=== PATIENT | female | born 1935 | race Caucasian/White ===

== ENCOUNTER 2016-11-28 15:29 | Inpatient (IN) | payer OTHER, MEDICAID ==
[~2016-11-28] VITALS: Ht 149.9 cm; Wt 39.9 kg
[2016-11-28 15:40] VITALS: BP 101/40; PULSE 63; RESP 18; TEMP 97.7; O2SAT 91
[2016-11-28 16:33] LABS: ANION GAP 8 (5-15); CALCIUM 8.9 mg/dL (8.4-11.0); CHLORIDE 104 mmol/L (98-107); CREATININE 1.21 mg/dL (0.55-1.30); GLUCOSE 370 mg/dL (70-99); SODIUM SERUM 135 mmol/L (136-145); UREA NITROGEN, BLOOD 30 mg/dL (8-21)
[2016-11-28 16:34] LABS: INR 1.2 (0.8-1.2); PROTHROMBIN TIME 13.2 SECS (9.5-12.5)
[2016-11-28 16:38] LABS: ALANINE AMINOTRANSFERASE 17 U/L (12-78); ALBUMIN 1.7 g/dL (3.4-4.8); ASPARTATE AMINOTRANSFERASE 31 U/L (10-37); TOTAL BILIRUBIN 0.6 mg/dL (0.0-1.0); TOTAL PROTEIN, SERUM 6.2 g/dL (6.4-8.3)
[2016-11-28 16:41] LABS: BASOPHILS # (AUTO) 0.1 K/uL (0.0-0.2); BASOPHILS % (AUTO) 0.9 % (0.0-2.0); EOSINOPHILS % (AUTO) 0.2 % (0.0-4.0); HEMATOCRIT 36.6 % (36-48); HEMOGLOBIN 11.9 g/dL (12.0-16.0); LYMPHOCYTES # (AUTO) 0.2 K/uL (1.0-5.5); LYMPHOCYTES % (AUTO) 1.8 % (20.5-51.5); MEAN CORPUSCULAR HEMOGLOBIN 38 pg (27-31); MEAN CORPUSCULAR HGB CONC 33 % (32-36); MEAN CORPUSCULAR VOLUME 116 fL (79.0-98.0); MONOCYTES # (AUTO) 0.2 K/uL (0.0-1.0); MONOCYTES % (AUTO) 1.6 % (1.7-9.3); NEUTROPHILS # (AUTO) 9.2 K/uL (1.8-7.7); NEUTROPHILS % (AUTO) 95.5 % (40.0-70.0); PLATELET COUNT (AUTO) 212 K/uL (130-430); RED BLOOD CELL COUNT(AUTO) 3.15 MIL/uL (4.2-6.2); WHITE BLOOD COUNT (AUTO) 9.7 K/uL (4.8-10.8)
[2016-11-28 17:02] LABS: BILIRUBIN,URINE 1+ (NEGATIVE); BLOOD, URINE NEGATIVE (NEGATIVE); CLARITY/URINE CLEAR (CLEAR); COLOR,URINE YELLOW (YELLOW); GLUCOSE,URINE 2+ (NEGATIVE); KETONES,URINE NEGATIVE (NEGATIVE); LEUKOCYTE ESTERASE ,URINE NEGATIVE (NEGATIVE); NITRITE, URINE NEGATIVE (NEGATIVE); PROTEIN URINE 1+ (NEGATIVE)
[2016-11-28 17:11] LABS: BARBITURATE, URINE POSITIVE (NEG <=200)
[2016-11-28 17:12] LABS: BENZODIAZEPINE, URINE POSITIVE (NEG <=150); CANNABINOID, URINE POSITIVE (NEG <=50); COCAINE, URINE NEGATIVE (NEG <=150); METHAMPHETAMINES SCREEN,URINE NEGATIVE (NEG <=500); OPIATE, URINE POSITIVE (NEG <=100); PHENCYCLIDINE SCREEN,URINE NEGATIVE (NEG <=25); UR TRICYCLIC ANTIDEPRESSANTS POSITIVE (NEG <=300); URINE AMPHETAMINE NEGATIVE (NEG <=500); URINE METHADONE NEGATIVE (NEG <=200); URINE OXYCODONE SCREEN NEGATIVE (NEG <=100); URINE PROPOXYPHENE SCREEN NEGATIVE (NEG <=300)
[2016-11-28] MEDS ORDERED: cefTRIAXone 1 GM IVPB PREMIX 50 ML IV ONE (17:15)
[2016-11-28] MEDS ORDERED: NACL 0.9% 1,500 ML IV ONE (17:15)
[2016-11-28 17:19] LABS: BACTERIA,URINE RARE /HPF (None Seen); RBC,URINE 0-3 /HPF (0-3); WBC,URINE 0-3 /HPF (0-3)
[2016-11-28 17:27] LABS: RED CELL DISTRIBUTION WIDTH 23.9 % (9.0-15.0)
[2016-11-28] MEDS ORDERED: ENAL10TA PO (18:54)
[2016-11-28] MEDS ORDERED: CAPE500T15 PO (18:54)
[2016-11-28] MEDS ORDERED: BUTA1TAB52 PO (18:54)
[2016-11-28] MEDS ORDERED: ATOR10TA68 PO (18:54)
[2016-11-28] MEDS ORDERED: PROC-14 PO (18:54)
[2016-11-28] MEDS ORDERED: ONDA4TAB5 PO (18:54)
[2016-11-28 20:20] VITALS: BP 106/50; PULSE 74; RESP 22; TEMP 98.4; O2SAT 92
[2016-11-28] MEDS ORDERED: PROCHLORPERAZINE MALEATE 10 MG TABLET PO PRN (21:00)
[2016-11-28] MEDS ORDERED: ACETAMINOPHEN PO SCH (21:00)
[2016-11-28] MEDS ORDERED: BUTALBITAL PO SCH (21:00)
[2016-11-28] MEDS ORDERED: ONDANSETRON 4 MG ODT TAB PO SCH (21:00)
[2016-11-28] MEDS ORDERED: [UNRECOGNIZED DRUG - OTHER] PO SCH (21:00)
[2016-11-28] MEDS ORDERED: ALBUTEROL SULFATE 0.083% 2.5 MG/3 ML VIAL.NEB INH PRN (21:00)
[2016-11-28] MEDS: NACL 0.9% 1,000 ML IV SCH (21:34)
[2016-11-28] MEDS: ACETAMINOPHEN 325 MG TABLET PO PRN (22:49)
[2016-11-28 23:48] VITALS: BP 106/50; PULSE 71
[2016-11-29] VITALS (7 sets, daily range): BP systolic 97–142; BP diastolic 52–67; PULSE 64–112; RESP 18–20; TEMP 97.2–98.3; O2SAT 92–97
[2016-11-29] MEDS: NITROGLYCERIN 1 INCH (GM) OINT. TP SCH ×3 (03:31→22:08)
[2016-11-29] MEDS: ACETAMINOPHEN 325 MG TABLET PO PRN (05:33)
[2016-11-29] MEDS: INSULIN REGULAR, HUMAN 100 UNITS/ML, 10 ML VIAL (novoLIN R) SUBCUT PRN (06:16)
[2016-11-29 07:56] LABS: ANION GAP 12 (5-15); CALCIUM 8.3 mg/dL (8.4-11.0); CHLORIDE 107 mmol/L (98-107); CREATININE 0.83 mg/dL (0.55-1.30); GLUCOSE 181 mg/dL (70-99); POTASSIUM 4.1 mmol/L (3.5-5.1); SODIUM SERUM 140 mmol/L (136-145); UREA NITROGEN, BLOOD 24 mg/dL (8-21)
[2016-11-29 07:57] LABS: BASOPHILS # (AUTO) 0.1 K/uL (0.0-0.2); BASOPHILS % (AUTO) 1.5 % (0.0-2.0); EOSINOPHILS % (AUTO) 0.3 % (0.0-4.0); HEMATOCRIT 37.1 % (36-48); HEMOGLOBIN 12.4 g/dL (12.0-16.0); LYMPHOCYTES # (AUTO) 0.2 K/uL (1.0-5.5); LYMPHOCYTES % (AUTO) 2.4 % (20.5-51.5); MEAN CORPUSCULAR HEMOGLOBIN 39 pg (27-31); MEAN CORPUSCULAR HGB CONC 33 % (32-36); MEAN CORPUSCULAR VOLUME 116 fL (79.0-98.0); MONOCYTES # (AUTO) 0.1 K/uL (0.0-1.0); MONOCYTES % (AUTO) 1.9 % (1.7-9.3); NEUTROPHILS # (AUTO) 7.2 K/uL (1.8-7.7); NEUTROPHILS % (AUTO) 93.9 % (40.0-70.0); PLATELET COUNT (AUTO) 211 K/uL (130-430); RED BLOOD CELL COUNT(AUTO) 3.19 MIL/uL (4.2-6.2); RED CELL DISTRIBUTION WIDTH 23.1 % (9.0-15.0); WHITE BLOOD COUNT (AUTO) 7.7 K/uL (4.8-10.8)
[2016-11-29 08:01] LABS: CREATINE KINASE, TOTAL 82 U/L (26-192)
[2016-11-29 08:41] LABS: CHOLESTEROL 76 mg/dL (<200); HDL CHOLESTEROL 27 mg/dL (>55); LDL CHOLESTEROL 30 mg/dL (<100); TRIGLYCERIDES 90 mg/dL (30-150)
[2016-11-29] MEDS ORDERED: HYDROcodone/ACETAMIN 5-325 MG TAB (NORCO/ VICODIN) PO PRN (08:45)
[2016-11-29] MEDS ORDERED: ASPIRIN 81 MG TAB.CHEW PO SCH (09:00)
[2016-11-29] MEDS ORDERED: CAPECITABINE 1000 MG PO SCH (09:00)
[2016-11-29] MEDS ORDERED: ENALAPRIL MALEATE 10 MG TABLET (VASOTEC) PO SCH (09:00)
[2016-11-29] MEDS: ATORVASTATIN 10 MG TABLET PO SCH (09:24)
[2016-11-29] MEDS: ENALAPRIL MALEATE 5 MG TABLET (VASOTEC) PO SCH (09:26)
[2016-11-29] MEDS: LEVOFLOXACIN 500 MG/D5W 100 ML IV SCH (09:28)
[2016-11-29] MEDS: CAPECITABINE 500 MG PO SCH ×3 (09:29→17:13)
[2016-11-29] MEDS ORDERED: ONDANSETRON HCL 4 MG/2 ML VIAL IVP PRN (09:30)
[2016-11-29] MEDS: NACL 0.9% 1,000 ML IV SCH (11:58)
[2016-11-29] MEDS ORDERED: HYDROcodone/ACETAMIN 5-325 MG TAB (NORCO/ VICODIN) PO ONE (12:30)
[2016-11-29] MEDS: ALBUTEROL SULFATE 0.083% 2.5 MG/3 ML VIAL.NEB INH SCH ×2 (14:00→19:30)
[2016-11-29] MEDS ORDERED: HYDROcodone/ACETAMIN 10-325 MG TAB PO PRN (17:30)
[2016-11-29] MEDS ORDERED: MAG-AL HYDROX/SIMETH 30 ML UDC PO PRN (17:30)
[2016-11-29] MEDS ORDERED: PANTOPRAZOLE SODIUM 40 MG/VIAL (PROTONIX) IVP ONE (17:45)
[2016-11-29] MEDS ORDERED: IOHEXOL 0 ML IV ONE (17:55)
[2016-11-29] MEDS: ACETAMINOPHEN/CODEINE 300 MG-30 MG TABLET PO PRN (18:03)
[2016-11-29] MEDS ORDERED: LORazepam 1 MG TABLET PO PRN (22:15)
[2016-11-29] MEDS ORDERED: TEMAZEPAM 15 MG CAPSULE PO PRN (22:15)
[2016-11-30] VITALS (19 sets, daily range): BP systolic 84–124; BP diastolic 42–89; PULSE 101–125; RESP 14–21; TEMP 96.7–98.2; O2SAT 90–100; Ht 149.9 cm; Wt 39.9 kg
[2016-11-30 00:04] LABS: INR 1.4 (0.8-1.2); PROTHROMBIN TIME 14.8 SECS (9.5-12.5)
[2016-11-30] MEDS: ALBUTEROL SULFATE 0.083% 2.5 MG/3 ML VIAL.NEB INH SCH ×3 (00:11→19:36)
[2016-11-30] MEDS: NACL 0.9% 1,000 ML IV SCH ×3 (01:52→18:06)
[2016-11-30] MEDS: ACETAMINOPHEN/CODEINE 300 MG-30 MG TABLET PO PRN (03:18)
[2016-11-30] MEDS: INSULIN REGULAR, HUMAN 100 UNITS/ML, 10 ML VIAL (novoLIN R) SUBCUT PRN (06:16)
[2016-11-30 07:13] LABS: ANION GAP 13 (5-15); CALCIUM 7.6 mg/dL (8.4-11.0); CHLORIDE 104 mmol/L (98-107); CREATININE 1.59 mg/dL (0.55-1.30); GLUCOSE 262 mg/dL (70-99); POTASSIUM 4.3 mmol/L (3.5-5.1); SODIUM SERUM 134 mmol/L (136-145); UREA NITROGEN, BLOOD 34 mg/dL (8-21)
[2016-11-30 08:40] LABS: MEAN CORPUSCULAR HEMOGLOBIN 38 pg (27-31); PLATELET COUNT (AUTO) 153 K/uL (130-430)
[2016-11-30 08:45] LABS: HEMATOCRIT 33.6 % (36-48); HEMOGLOBIN 10.9 g/dL (12.0-16.0); MEAN CORPUSCULAR HGB CONC 33 % (32-36); MEAN CORPUSCULAR VOLUME 117 fL (79.0-98.0); RED BLOOD CELL COUNT(AUTO) 2.85 MIL/uL (4.2-6.2); WHITE BLOOD COUNT (AUTO) 9.8 K/uL (4.8-10.8)
[2016-11-30 08:46] LABS: RED CELL DISTRIBUTION WIDTH 22.9 % (9.0-15.0)
[2016-11-30 08:51] LABS: ATYPICAL LYMPHOCYTES % 0 % (0-0); BAND % (MANUAL) 3 % (0-6); BASOPHILS % (MANUAL) 0 % (0-2); EOSINOPHILS % (MANUAL) 0 % (0-7); LYMPHOCYTES % (MANUAL) 4 % (20-46); MONOCYTES % (MANUAL) 1 % (0-11)
[2016-11-30] MEDS: CAPECITABINE 500 MG PO SCH ×2 (09:00→18:00)
[2016-11-30] MEDS: ENALAPRIL MALEATE 5 MG TABLET (VASOTEC) PO SCH (09:00)
[2016-11-30] MEDS: ATORVASTATIN 10 MG TABLET PO SCH (09:00)
[2016-11-30] MEDS: PANTOPRAZOLE SODIUM 40 MG/VIAL (PROTONIX) IVP SCH (10:31)
[2016-11-30] MEDS: LEVOFLOXACIN 500 MG/D5W 100 ML IV SCH (10:32)
[2016-11-30] MEDS ORDERED: PIPERACILLIN/TAZO 2.25G/DEX-IS 50 ML IV ONE (11:00)
[2016-11-30] MEDS ORDERED: PIPERACILLIN/TAZO 2.25G/DEX-IS 50 ML IV SCH (12:00)
[2016-11-30] MEDS ORDERED: POLYMYXIN 500,000/BACIT.10,000 UNITS in NS IRR 1 L IR ONE (13:13)
[2016-11-30] MEDS: metroNIDAZOLE 500 mg/NS 100 ML IV SCH ×2 (14:00→23:05)
[2016-11-30 16:37] LABS: BLOOD GAS BASE EXCESS -10.3 mmol/L (-3.0-3.0); BLOOD GAS PH 7.225 (7.350-7.450)
[2016-11-30 16:38] LABS: ABG TOTAL HEMOGLOBIN 12.4 G/dL (12.0-18.0); BLOOD GAS COHb% 1.2 % (0.5-1.5); BLOOD O2Hb% 90.5 % (94.0-97.0)
[2016-11-30] MEDS ORDERED: SODIUM BICARBONATE 8.4% JECT 50 MEQ/50 ML SYRINGE IVP ONE (17:00)
[2016-11-30] MEDS ORDERED: NS 250 ML IV ONE (17:00)
[2016-11-30] MEDS ORDERED: SODIUM BICARBONATE 8.4% JECT 50 MEQ/50 ML SYRINGE ONE (17:04)
[2016-11-30] MEDS: PIPERACILLIN/TAZO 2.25G/DEX-IS 50 ML IV SCH (18:11)
[2016-11-30 18:19] LABS: BLOOD GAS BASE EXCESS -6.2 mmol/L (-3.0-3.0); BLOOD GAS PH 7.318 (7.350-7.450)
[2016-11-30 18:20] LABS: ABG TOTAL HEMOGLOBIN 10.8 G/dL (12.0-18.0); BLOOD GAS COHb% 0.6 % (0.5-1.5); BLOOD GAS HHB 8.7 % (0.0-6.0); BLOOD O2Hb% 90.3 % (94.0-97.0)
[2016-11-30] MEDS ORDERED: NS 500 ML IV ONE ×2 (18:45)
[2016-11-30] MEDS ORDERED: SODIUM BICARBONATE 8.4% JECT 100 MEQ in 0.45% NACL 1,000 ML IV SCH (19:00)
[2016-11-30] MEDS: SODIUM BICARBONATE 8.4% JECT 100 MEQ in 0.45% NACL 1,000 ML IV SCH (20:43)
[2016-11-30] MEDS ORDERED: NOREPINEPHRINE 4 MG/4 ML VIAL IV ONE ×2 (20:46)
[2016-11-30] MEDS: HYDROmorphone 1 MG INJ. 1 MG/ML AMPUL IVP PRN (22:19)
[2016-12-01] VITALS (37 sets, daily range): BP systolic 91–130; BP diastolic 37–90; PULSE 102–134; RESP 9–28; TEMP 98–99.3; O2SAT 88–100
[2016-12-01] MEDS: LORazepam 2 MG/ML VIAL IVP PRN (00:23)
[2016-12-01] MEDS: PIPERACILLIN/TAZO 2.25G/DEX-IS 50 ML IV SCH ×5 (00:31→23:51)
[2016-12-01] MEDS: ALBUTEROL SULFATE 0.083% 2.5 MG/3 ML VIAL.NEB INH SCH ×4 (00:54→19:46)
[2016-12-01] MEDS ORDERED: NOREPINEPHRINE 4 MG/4 ML VIAL IV ONE (04:12)
[2016-12-01] MEDS: NOREPINEPHRINE BITARTRATE 4 MG in NS 246 ML IV PRN ×3 (04:34→18:09)
[2016-12-01] MEDS: SODIUM BICARBONATE 8.4% JECT 100 MEQ in 0.45% NACL 1,000 ML IV SCH ×3 (05:18→22:09)
[2016-12-01] MEDS: metroNIDAZOLE 500 mg/NS 100 ML IV SCH ×3 (05:30→22:08)
[2016-12-01 06:33] LABS: ALANINE AMINOTRANSFERASE 18 U/L (12-78); ALBUMIN 1.2 g/dL (3.4-4.8); ANION GAP 9 (5-15); ASPARTATE AMINOTRANSFERASE 58 U/L (10-37); CHLORIDE 108 mmol/L (98-107); CREATININE 1.71 mg/dL (0.55-1.30); GLUCOSE 158 mg/dL (70-99); SODIUM SERUM 139 mmol/L (136-145); TOTAL BILIRUBIN 0.6 mg/dL (0.0-1.0); TOTAL PROTEIN, SERUM 5.2 g/dL (6.4-8.3); UREA NITROGEN, BLOOD 38 mg/dL (8-21)
[2016-12-01 06:43] LABS: BASOPHILS % (AUTO) 0.1 % (0.0-2.0); EOSINOPHILS % (AUTO) 0.1 % (0.0-4.0); HEMATOCRIT 29.4 % (36-48); LYMPHOCYTES # (AUTO) 0.1 K/uL (1.0-5.5); LYMPHOCYTES % (AUTO) 0.9 % (20.5-51.5); MEAN CORPUSCULAR HEMOGLOBIN 38 pg (27-31); MEAN CORPUSCULAR HGB CONC 32 % (32-36); MEAN CORPUSCULAR VOLUME 117 fL (79.0-98.0); MONOCYTES # (AUTO) 0.3 K/uL (0.0-1.0); MONOCYTES % (AUTO) 2.1 % (1.7-9.3); NEUTROPHILS # (AUTO) 11.5 K/uL (1.8-7.7); NEUTROPHILS % (AUTO) 96.8 % (40.0-70.0); PLATELET COUNT (AUTO) 132 K/uL (130-430); RED BLOOD CELL COUNT(AUTO) 2.51 MIL/uL (4.2-6.2); WHITE BLOOD COUNT (AUTO) 11.9 K/uL (4.8-10.8)
[2016-12-01 06:44] LABS: CALCIUM 6.9 mg/dL (8.4-11.0)
[2016-12-01 07:05] LABS: HEMOGLOBIN 9.5 g/dL (12.0-16.0)
[2016-12-01 07:57] LABS: BLOOD GAS PH 7.425 (7.350-7.450)
[2016-12-01 07:58] LABS: ABG TOTAL HEMOGLOBIN 10.2 G/dL (12.0-18.0); BLOOD GAS BASE EXCESS -4.6 mmol/L (-3.0-3.0); BLOOD GAS COHb% 0.4 % (0.5-1.5); BLOOD GAS HHB 12.4 % (0.0-6.0); BLOOD O2Hb% 86.8 % (94.0-97.0)
[2016-12-01] MEDS: HYDROmorphone 1 MG INJ. 1 MG/ML AMPUL IVP PRN ×3 (08:02→21:26)
[2016-12-01] MEDS ORDERED: NACL 0.9% 1,000 ML IV SCH (08:15)
[2016-12-01] MEDS: CAPECITABINE 500 MG PO SCH ×2 (08:24→17:20)
[2016-12-01] MEDS: PANTOPRAZOLE SODIUM 40 MG/VIAL (PROTONIX) IVP SCH (08:24)
[2016-12-01] MEDS: ALBUMIN HUMAN 25% 50 ML IV SCH ×3 (08:25→17:04)
[2016-12-01] MEDS ORDERED: NS 500 ML IV ONE (11:15)
[2016-12-01] MEDS ORDERED: NS 1000 ML BAG IV ONE (12:20)
[2016-12-01] MEDS ORDERED: ROCURONIUM BROMIDE 10 MG/ML (ZEMURON) IV ONE (12:20)
[2016-12-01] MEDS ORDERED: PROPOFOL 200MG/ 20ML VIAL (DIPRIVAN) IV ONE (12:20)
[2016-12-01] MEDS ORDERED: MIDAZOLAM HCL 5 MG/5 ML VIAL IVP ONE (12:20)
[2016-12-01] MEDS ORDERED: LR 1,000 ML IV.SOLN IV ONE (12:20)
[2016-12-01] MEDS ORDERED: SEVOFLURANE 15 MIN GAS INH ONE (12:20)
[2016-12-01] MEDS ORDERED: LEVOFLOXACIN 500 MG/D5W 100 ML PIGGYBACK IV ONE (12:20)
[2016-12-01] MEDS ORDERED: ONDANSETRON HCL 4 MG/2 ML VIAL IVP ONE (12:20)
[2016-12-01] MEDS ORDERED: fentaNYL CITRATE 250 MCG/5 ML AMP IV ONE (12:20)
[2016-12-01] MEDS ORDERED: NS IRRIG SOLN 1000 ML IR ONE (12:20)
[2016-12-01] MEDS ORDERED: SODIUM BICARBONATE 8.4% JECT 50 MEQ/50 ML SYRINGE IVP ONE (13:30)
[2016-12-01] MEDS ORDERED: HYDROmorphone 1 MG INJ. 1 MG/ML AMPUL IVP ONE (15:00)
[2016-12-01] MEDS: HYDROCORTISONE SOD SUCC 100 MG/2 ML VIAL IVP SCH ×2 (15:07→22:07)
[2016-12-01] MEDS: FLUCONAZOLE 200 mg/ NS 100 ML IV SCH (18:57)
[2016-12-02] VITALS (35 sets, daily range): BP systolic 71–121; BP diastolic 38–90; PULSE 93–151; RESP 13–28; TEMP 97.4–102.5; O2SAT 89–100
[2016-12-02] MEDS: ALBUTEROL SULFATE 0.083% 2.5 MG/3 ML VIAL.NEB INH SCH ×4 (01:12→20:26)
[2016-12-02] MEDS: HYDROmorphone 1 MG INJ. 1 MG/ML AMPUL IVP PRN ×5 (02:01→20:20)
[2016-12-02] MEDS: LORazepam 2 MG/ML VIAL IVP PRN ×7 (04:53→23:53)
[2016-12-02] MEDS: PIPERACILLIN/TAZO 2.25G/DEX-IS 50 ML IV SCH ×4 (05:22→23:59)
[2016-12-02] MEDS: HYDROCORTISONE SOD SUCC 100 MG/2 ML VIAL IVP SCH ×3 (05:37→22:22)
[2016-12-02] MEDS: metroNIDAZOLE 500 mg/NS 100 ML IV SCH ×3 (06:04→22:22)
[2016-12-02 06:47] LABS: ANION GAP 14 (5-15); CHLORIDE 109 mmol/L (98-107); POTASSIUM 3.6 mmol/L (3.5-5.1); SODIUM SERUM 142 mmol/L (136-145)
[2016-12-02 06:48] LABS: ALANINE AMINOTRANSFERASE 17 U/L (12-78); ALBUMIN 1.7 g/dL (3.4-4.8); ASPARTATE AMINOTRANSFERASE 63 U/L (10-37); CREATININE 1.55 mg/dL (0.55-1.30); GLUCOSE 169 mg/dL (70-99); TOTAL PROTEIN, SERUM 5.1 g/dL (6.4-8.3); UREA NITROGEN, BLOOD 32 mg/dL (8-21)
[2016-12-02 06:55] LABS: BASOPHILS % (AUTO) 0.1 % (0.0-2.0); HEMATOCRIT 25.5 % (36-48); HEMOGLOBIN 8.3 g/dL (12.0-16.0); LYMPHOCYTES # (AUTO) 0.2 K/uL (1.0-5.5); LYMPHOCYTES % (AUTO) 1.2 % (20.5-51.5); MEAN CORPUSCULAR HEMOGLOBIN 38 pg (27-31); MEAN CORPUSCULAR HGB CONC 33 % (32-36); MEAN CORPUSCULAR VOLUME 117 fL (79.0-98.0); MONOCYTES # (AUTO) 0.1 K/uL (0.0-1.0); MONOCYTES % (AUTO) 0.6 % (1.7-9.3); NEUTROPHILS # (AUTO) 13.1 K/uL (1.8-7.7); NEUTROPHILS % (AUTO) 98.1 % (40.0-70.0); PLATELET COUNT (AUTO) 76 K/uL (130-430); RED BLOOD CELL COUNT(AUTO) 2.17 MIL/uL (4.2-6.2); RED CELL DISTRIBUTION WIDTH 22.8 % (9.0-15.0); WHITE BLOOD COUNT (AUTO) 13.4 K/uL (4.8-10.8)
[2016-12-02] MEDS: SODIUM BICARBONATE 8.4% JECT 100 MEQ in 0.45% NACL 1,000 ML IV SCH (07:42)
[2016-12-02 07:55] LABS: ABG TOTAL HEMOGLOBIN 10.6 G/dL (12.0-18.0); BLOOD GAS BASE EXCESS -6.1 mmol/L (-3.0-3.0); BLOOD GAS COHb% 0.3 % (0.5-1.5); BLOOD GAS HHB 12.3 % (0.0-6.0); BLOOD O2Hb% 87.3 % (94.0-97.0)
[2016-12-02] MEDS: PANTOPRAZOLE SODIUM 40 MG/VIAL (PROTONIX) IVP SCH (09:20)
[2016-12-02] MEDS: FLUCONAZOLE 200 mg/ NS 100 ML IV SCH (17:04)
[2016-12-02] MEDS ORDERED: ACETAMINOPHEN 650 MG SUPP.RECT RC PRN (23:30)
[2016-12-03] VITALS (22 sets, daily range): BP systolic 73–139; BP diastolic 37–70; PULSE 108–142; RESP 15–29; TEMP 97.9–100.8; O2SAT 88–99
[2016-12-03] MEDS: ALBUTEROL SULFATE 0.083% 2.5 MG/3 ML VIAL.NEB INH SCH ×2 (00:06→07:23)
[2016-12-03] MEDS: NOREPINEPHRINE BITARTRATE 4 MG in NS 246 ML IV PRN (00:35)
[2016-12-03] MEDS: LORazepam 2 MG/ML VIAL IVP PRN (01:37)
[2016-12-03] MEDS: metroNIDAZOLE 500 mg/NS 100 ML IV SCH (05:06)
[2016-12-03] MEDS: SODIUM BICARBONATE 8.4% JECT 100 MEQ in 0.45% NACL 1,000 ML IV SCH (05:06)
[2016-12-03] MEDS: HYDROCORTISONE SOD SUCC 100 MG/2 ML VIAL IVP SCH (05:27)
[2016-12-03] MEDS: HYDROmorphone 1 MG INJ. 1 MG/ML AMPUL IVP PRN ×2 (05:29→11:09)
[2016-12-03] MEDS: PIPERACILLIN/TAZO 2.25G/DEX-IS 50 ML IV SCH (05:44)
[2016-12-03] MEDS: INSULIN REGULAR, HUMAN 100 UNITS/ML, 10 ML VIAL (novoLIN R) SUBCUT PRN (05:50)
[2016-12-03 07:10] LABS: HEMOGLOBIN 8.8 g/dL (12.0-16.0); MEAN CORPUSCULAR HEMOGLOBIN 38 pg (27-31); MEAN CORPUSCULAR HGB CONC 33 % (32-36); MEAN CORPUSCULAR VOLUME 118 fL (79.0-98.0); RED CELL DISTRIBUTION WIDTH 23.1 % (9.0-15.0); WHITE BLOOD COUNT (AUTO) 17.3 K/uL (4.8-10.8)
[2016-12-03 07:19] LABS: PLATELET COUNT (AUTO) 44 K/uL (130-430)
[2016-12-03 07:27] LABS: ANION GAP 10 (5-15); CHLORIDE 109 mmol/L (98-107); GLUCOSE 194 mg/dL (70-99); POTASSIUM 3.8 mmol/L (3.5-5.1); SODIUM SERUM 141 mmol/L (136-145); TOTAL BILIRUBIN 1.1 mg/dL (0.0-1.0); UREA NITROGEN, BLOOD 40 mg/dL (8-21)
[2016-12-03 07:28] LABS: ALANINE AMINOTRANSFERASE 22 U/L (12-78); ALBUMIN 1.3 g/dL (3.4-4.8); ASPARTATE AMINOTRANSFERASE 85 U/L (10-37); LIPASE 202 U/L (73-393); TOTAL PROTEIN, SERUM 4.7 g/dL (6.4-8.3)
[2016-12-03 07:33] LABS: CALCIUM 6.9 mg/dL (8.4-11.0)
[2016-12-03 07:51] LABS: ABG TOTAL HEMOGLOBIN 9.7 G/dL (12.0-18.0); BLOOD GAS BASE EXCESS -4.3 mmol/L (-3.0-3.0); BLOOD GAS COHb% 0.3 % (0.5-1.5); BLOOD GAS HHB 11.8 % (0.0-6.0); BLOOD GAS PH 7.372 (7.350-7.450); BLOOD O2Hb% 87.4 % (94.0-97.0)
[2016-12-03 08:16] LABS: BAND % (MANUAL) 2 % (0-6); LYMPHOCYTES % (MANUAL) 2 % (20-46)
[2016-12-03 08:17] LABS: BASOPHILS % (MANUAL) 0 % (0-2); CORRECTED WHITE BLOOD COUNT 16.3 K/uL (4.5-11.0); EOSINOPHILS % (MANUAL) 0 % (0-7); MONOCYTES % (MANUAL) 6 % (0-11)
[2016-12-03] MEDS: PHENYLEPHRINE HCL 30 MG in NS 247 ML IV PRN ×2 (08:28→08:34)
[2016-12-03] MEDS: PANTOPRAZOLE SODIUM 40 MG/VIAL (PROTONIX) IVP SCH (08:29)
[2016-12-03] MEDS ORDERED: MORPHINE I.V. DRIP 100 ML IV PRN (11:45)
[2016-12-03] MEDS ORDERED: MORPHINE PCA 50 mg/50 mL NS IV PRN (12:00)
[2016-12-03] MEDS ORDERED: LORazepam 2 MG/ML VIAL IVP PRN (14:30)
== END 2016-12-03 17:15 | disposition expired | DRG 853 ==
LOC: SED 15:29 → STU 19:58 → SIC 11-30 14:00
PROVIDERS: ADMIT Internal Medicine; ATTEND Internal Medicine
PROC: 0JB80ZZ Excision of Abdomen Subcutaneous Tissue and Fascia, Open Approach (ICD-10-PCS; 2016-11-30)
PROC: 0DQ60ZZ Repair Stomach, Open Approach (ICD-10-PCS; 2016-11-30)
PROC: 5A1945Z Respiratory Ventilation, 24-96 Consecutive Hours (ICD-10-PCS; 2016-11-30)
PROC: 0BH17EZ Insertion of Endotracheal Airway into Trachea, Via Natural or Artificial Opening (ICD-10-PCS; 2016-11-30)
PROC: 0D190ZA Bypass Duodenum to Jejunum, Open Approach (ICD-10-PCS; principal; 2016-11-30 12:00)
DX: A41.59 Other Gram-negative sepsis (principal); E43 Unspecified severe protein-calorie malnutrition; G93.40 Encephalopathy, unspecified; J96.00 Acute respiratory failure, unspecified whether with hypoxia or hypercapnia; K25.5 Chronic or unspecified gastric ulcer with perforation; K65.1 Peritoneal abscess; R65.21 Severe sepsis with septic shock; K63.1 Perforation of intestine (nontraumatic); J69.0 Pneumonitis due to inhalation of food and vomit; C78.00 Secondary malignant neoplasm of unspecified lung; E87.2 Acidosis; J44.0 Chronic obstructive pulmonary disease with (acute) lower respiratory infection; N17.9 Acute kidney failure, unspecified; C15.5 Malignant neoplasm of lower third of esophagus; Z68.1 Body mass index [BMI] 19.9 or less, adult; Z66 Do not resuscitate; D64.9 Anemia, unspecified; I10 Essential (primary) hypertension; F41.0 Panic disorder [episodic paroxysmal anxiety]; G89.29 Other chronic pain; F03.90 Unspecified dementia, unspecified severity, without behavioral disturbance, psychotic disturbance, mood disturbance, and anxiety; R73.9 Hyperglycemia, unspecified; Z87.81 Personal history of (healed) traumatic fracture; Z87.891 Personal history of nicotine dependence; Z92.3 Personal history of irradiation; Z88.6 Allergy status to analgesic agent; Z88.8 Allergy status to other drugs, medicaments and biological substances; Z79.899 Other long term (current) drug therapy; Z86.73 Personal history of transient ischemic attack (TIA), and cerebral infarction without residual deficits; Z90.710 Acquired absence of both cervix and uterus
CPT/HCPCS: 36415; 36600; 70450-TC; 71010; 71020-TC; 71250-TC; 80048; 80053; 80061; 80307; 81000-TC; 82550-TC; 82803-TC; 82962; 83605; 83690-TC; 83880; 84484; 85007; 85025; 85027; 85610-TC; 85730-TC; 86886; 86900; 86901; 87040-TC; 87070; 87070-TC; 87075-TC; 87081; 87186-TC; 93005; 93306; 94002; 94003; 94640; 96365; 97530-GP; 99291; C1751; C9113; J0696; J1170; J1450; J1720; J1815; J1956; J2060; J2250; J2270; J2370; J2405; J2543; J2704; J3010; J3490; J7030; J7040; J7050; J7120; P9046; Q9967